=== PATIENT | male | born 1935 | race Caucasian/White ===

== ENCOUNTER → 2017-10-19 | Outpatient (CLI) | END | disposition home or self-care (01) ==

== ENCOUNTER 2018-12-31 06:12 | Day surgery (SDC) | payer MEDICARE, OTHER ==
[~2018-12-31] VITALS: Ht 165.1 cm; Wt 76.2 kg
[~2018-12-31 06:12] MED LIST: ASPI-1046; CLOP75TA19; FURO-110 PO; ISOS60TA52; LEVO175T2; LISI-313 PO; METO-335 PO
[2018-12-31] MEDS ORDERED: PROPOFOL 200 MG INJ ONE (07:00)
[2018-12-31] MEDS ORDERED: Atorvastatin (07:19)
[2018-12-31 07:21] VITALS: Ht 165.1 cm; Wt 76.2 kg
[2018-12-31 07:47] VITALS: BP 153/70; PULSE 87; RESP 18
--- NOTE | 2018-12-31 07:53 | PREAC ---
Date/Time of Note Date/Time of Note DATE: 12/31/18 TIME: 07:50 Anesthesia Eval and Record Evaluation Time Pre-Procedure Interview DATE: 12/31/18 TIME: 07:50 Age 83 Sex male NPO: 8 hrs Preoperative diagnosis GENERALIZED ABDOMINAL PAIN Planned procedure COLON WITH BIOPSIES Past Medical History Past Medical History: Includes Cardio: Dyslipidemia, CAD, PTCA/Stent Pulm: Sleep Apnea Heme: Anemia Surgery & Anesthesia Issues No known issue Meds Anticoagulation: No Beta Tato within 24 hr: No Reason Beta Tato not given: Pt. not on B-Tato Reported Medications [Atorvastatin] No Conflict Check 12/31/18 Furosemide* (Lasix*) 20 Mg Tablet, 20 MG PO DAILY, TAB 01/07/15 Lisinopril* (Lisinopril*) 5 Mg Tablet, 5 MG PO DAILY, TAB 01/07/15 Clopidogrel Bisulfate (Plavix) 75 Mg Tablet 03/03/11 Aspirin* (Aspirin* (EC)) 81 Mg Tablet.dr 03/03/11 Levothyroxine Sodium* (Synthroid*) 175 Mcg Tablet 03/03/11 Isosorbide Mononitrate* (Imdur*) 60 Mg Tab.sr.24h 03/03/11 Meds reviewed: Yes Allergies Coded Allergies: Penicillins (Verified Allergy, Severe, COMA, 01/07/15) Allergies Reviewed: Yes Labs/Studies Labs Reviewed: Reviewed by anesthesiologist test: N/A Pre-procedure Exam Last vitals Vital Signs Date Temp Pulse Resp B/P (MAP) Pulse Ox O2 O2 Flow FiO2 Time Delivery Rate 12/31/18 98.4 87 18 153/70 95 Room Air 07:47 (97) Airway: Adequate mouth opening, Adequate thyromental dist Mallampati: Mallampati II Teeth: Abnormal (FULL DENTURE TOP AND BOTTOM) Lung: Normal Heart: Normal ASA Physical Status ASA physical status: 3 Emergency: None Planned Anesthetic General/MAC: MAC Planned Pain Management Parenteral pain med Pre-operative Attestations Prior to commencing anesthesia and surgery, the patient was re-evaluated, there was verification of: *The patient's identity *The results of appropriate recent lab work and preoperative vital signs *The above evaluation not changing prior to induction *Anesthetic plan, risk benefits, alternative and complications discussed with patient/family; questions answered; patient/family understands, accepts and wishes to proceed. Dontae Mckeon M.D. Dec 31, 2018 07:53
[2018-12-31] MEDS ORDERED: PROPOFOL 40 ML ONE (08:06)
[2018-12-31] MEDS ORDERED: LIDOCAINE 100 MG SYRINGE ONE (08:06)
--- NOTE | 2018-12-31 08:37 | PAC ---
Date/Time of Note Date/Time of Note DATE: 12/31/18 TIME: 08:37 Post-Anesthesia Notes Post-Anesthesia Note Last documented vital signs Vital Signs Date Temp Pulse Resp B/P (MAP) Pulse Ox O2 O2 Flow FiO2 Time Delivery Rate 12/31/18 98.4 87 18 153/70 95 Room Air 07:47 (97) Activity: WNL Respiratory function: WNL Cardiovascular function: WNL Mental status: Baseline Pain reasonably controlled: Yes Hydration appropriate: Yes Nausea/Vomiting absent: Yes Dontae Mckeon M.D. Dec 31, 2018 08:37
[2018-12-31 09:05] VITALS: BP 144/65; RESP 12; RESP 17
== END 2018-12-31 11:36 | disposition home or self-care (01) ==
LOC: GIL 06:12
PROVIDERS: ATTEND Internal Medicine Gastroenterology
DX: K64.8 Other hemorrhoids (principal); K63.89 Other specified diseases of intestine; I25.10 Atherosclerotic heart disease of native coronary artery without angina pectoris
CPT/HCPCS: 45378; J2001